=== PATIENT | female | born 1985 | race Caucasian/White ===

== ENCOUNTER → 2021-02-03 | Outpatient (CLI) | payer OTHER | LOC: LAB 12:01 | DX: U07.1 COVID-19 (principal) ==

== ENCOUNTER → 2021-04-19 | Outpatient (CLI) | payer OTHER ==
[~2021-04-19] MED LIST: AMOCLAN 600 MG/75 ML PO; PHENERGAN 25 TA25 MG; PROCHLORPERAZINE5 M1 PO; ROXICODONE 55 MG/TAB PO; SCOPOLAMINE1 EACH TD; ZOFRAN ODT4 MG PO
[2021-04-19 15:46] LABS: HEMATOCRIT 38.3 % (37.0-47.0); HEMOGLOBIN 12.4 g/dL (12.5-16.0); MEAN PLATELET VOLUME 10.6 fl (7.4-10.4); RED BLOOD COUNT 4.15 M/mm3 (4.10-5.30); RED CELL DISTRIBUTION WIDTH 12.2 % (11.5-14.5); WHITE BLOOD COUNT 11.1 K/mm3 (4.8-10.8)
[2021-04-19 15:47] LABS: ALBUMIN 3.5 g/dL (3.5-5.0)
[2021-04-19 15:48] LABS: POTASSIUM 4.3 mmol/L (3.5-5.1)
[2021-04-19 15:49] LABS: CALCIUM 9.4 mg/dL (8.3-10.5)
[2021-04-19 15:50] LABS: TOTAL PROTEIN 7.6 g/dL (6.4-8.3)
[2021-04-19 15:52] LABS: TOTAL BILIRUBIN 0.3 mg/dL (0.2-1.2)
[2021-04-19 15:57] LABS: MAGNESIUM 1.74 mg/dL (1.60-2.60)
== END ==
LOC: LAB 14:51
DX: Z98.890 Other specified postprocedural states (principal)

== ENCOUNTER → 2021-04-22 | Outpatient (CLI) | payer OTHER ==
[2021-04-22 13:11] LABS: HEMATOCRIT 36.8 % (37.0-47.0); HEMOGLOBIN 12.1 g/dL (12.5-16.0); MEAN PLATELET VOLUME 11.3 fl (7.4-10.4); RED BLOOD COUNT 4.06 M/mm3 (4.10-5.30); RED CELL DISTRIBUTION WIDTH 12.4 % (11.5-14.5); WHITE BLOOD COUNT 9.1 K/mm3 (4.8-10.8)
[2021-04-22 13:30] LABS: ALBUMIN 3.4 g/dL (3.5-5.0); POTASSIUM 4.3 mmol/L (3.5-5.1)
[2021-04-22 13:31] LABS: CALCIUM 9.3 mg/dL (8.3-10.5)
[2021-04-22 13:33] LABS: TOTAL PROTEIN 7.6 g/dL (6.4-8.3)
[2021-04-22 13:34] LABS: TOTAL BILIRUBIN 0.4 mg/dL (0.2-1.2)
[2021-04-22 13:39] LABS: MAGNESIUM 1.7 mg/dL (1.60-2.60)
== END ==
LOC: LAB 07:35 → AMSURD 07:35
PROVIDERS: Surgery
DX: E46 Unspecified protein-calorie malnutrition (principal); Z98.890 Other specified postprocedural states

== ENCOUNTER → 2021-04-26 | Outpatient (CLI) | payer OTHER ==
[2021-04-26 11:55] LABS: HEMATOCRIT 38.6 % (37.0-47.0); HEMOGLOBIN 12.7 g/dL (12.5-16.0); MEAN PLATELET VOLUME 10.9 fl (7.4-10.4); RED BLOOD COUNT 4.21 M/mm3 (4.10-5.30); RED CELL DISTRIBUTION WIDTH 12.6 % (11.5-14.5); WHITE BLOOD COUNT 9.9 K/mm3 (4.8-10.8)
[2021-04-26 12:05] LABS: ALBUMIN 3.7 g/dL (3.5-5.0); POTASSIUM 4.7 mmol/L (3.5-5.1)
[2021-04-26 12:07] LABS: CALCIUM 9.4 mg/dL (8.3-10.5)
[2021-04-26 12:10] LABS: TOTAL BILIRUBIN 0.4 mg/dL (0.2-1.2)
[2021-04-26 12:14] LABS: MAGNESIUM 1.88 mg/dL (1.60-2.60)
== END ==
LOC: LAB 11:36
PROVIDERS: Surgery
DX: E44.1 Mild protein-calorie malnutrition (principal); R18.8 Other ascites; Z98.84 Bariatric surgery status

== ENCOUNTER → 2021-04-29 | Outpatient (CLI) | payer OTHER ==
[2021-04-29 12:48] LABS: HEMATOCRIT 37.3 % (37.0-47.0); HEMOGLOBIN 12.2 g/dL (12.5-16.0); MEAN PLATELET VOLUME 11.4 fl (7.4-10.4); RED BLOOD COUNT 4.09 M/mm3 (4.10-5.30); RED CELL DISTRIBUTION WIDTH 12.8 % (11.5-14.5); WHITE BLOOD COUNT 9.9 K/mm3 (4.8-10.8)
[2021-04-29 13:02] LABS: ALBUMIN 3.8 g/dL (3.5-5.0); POTASSIUM 4.6 mmol/L (3.5-5.1)
[2021-04-29 13:03] LABS: CALCIUM 9.9 mg/dL (8.3-10.5)
[2021-04-29 13:05] LABS: TOTAL PROTEIN 7.7 g/dL (6.4-8.3)
[2021-04-29 13:06] LABS: TOTAL BILIRUBIN 0.4 mg/dL (0.2-1.2)
[2021-04-29 13:11] LABS: MAGNESIUM 1.8 mg/dL (1.60-2.60)
== END ==
LOC: LAB 11:37
PROVIDERS: Surgery
DX: E44.1 Mild protein-calorie malnutrition (principal); R18.8 Other ascites; Z98.84 Bariatric surgery status

== ENCOUNTER → 2021-05-03 | Outpatient (CLI) | payer OTHER ==
[2021-05-03 13:10] LABS: HEMOGLOBIN 13.2 g/dL (12.5-16.0); MEAN PLATELET VOLUME 11.3 fl (7.4-10.4); RED BLOOD COUNT 4.4 M/mm3 (4.10-5.30); WHITE BLOOD COUNT 11.3 K/mm3 (4.8-10.8)
[2021-05-03 13:13] LABS: POTASSIUM 4.9 mmol/L (3.5-5.1)
[2021-05-03 13:14] LABS: CALCIUM 9.9 mg/dL (8.3-10.5)
[2021-05-03 13:16] LABS: TOTAL PROTEIN 8.6 g/dL (6.4-8.3)
[2021-05-03 13:17] LABS: TOTAL BILIRUBIN 0.5 mg/dL (0.2-1.2)
[2021-05-03 13:22] LABS: MAGNESIUM 1.67 mg/dL (1.60-2.60)
== END ==
LOC: LAB 12:19
PROVIDERS: Internal Medicine Cardiovascular Disease
DX: E44.1 Mild protein-calorie malnutrition (principal); R18.8 Other ascites; Z98.84 Bariatric surgery status

== ENCOUNTER → 2021-05-06 | Outpatient (CLI) | payer OTHER ==
[2021-05-06 13:22] LABS: ALBUMIN 3.7 g/dL (3.5-5.0); HEMATOCRIT 37.5 % (37.0-47.0); HEMOGLOBIN 12.4 g/dL (12.5-16.0); MEAN PLATELET VOLUME 12.1 fl (7.4-10.4); POTASSIUM 4.3 mmol/L (3.5-5.1); RED BLOOD COUNT 4.11 M/mm3 (4.10-5.30); RED CELL DISTRIBUTION WIDTH 13.4 % (11.5-14.5); WHITE BLOOD COUNT 11.1 K/mm3 (4.8-10.8)
[2021-05-06 13:23] LABS: CALCIUM 9.3 mg/dL (8.3-10.5)
[2021-05-06 13:25] LABS: TOTAL PROTEIN 7.6 g/dL (6.4-8.3)
[2021-05-06 13:26] LABS: TOTAL BILIRUBIN 0.4 mg/dL (0.2-1.2)
[2021-05-06 13:31] LABS: MAGNESIUM 1.67 mg/dL (1.60-2.60)
== END ==
LOC: LAB 11:40
PROVIDERS: Surgery
DX: E44.1 Mild protein-calorie malnutrition (principal); R18.8 Other ascites; Z98.84 Bariatric surgery status

== ENCOUNTER → 2021-07-03 | Outpatient (CLI) | payer OTHER ==
[2021-07-03 14:04] LABS: BASO # 0.05 K/mm3 (0.02-0.10); EOS # 0.11 K/mm3 (0.04-0.40); EOS % 1.6 % (1.0-5.0); HEMATOCRIT 40.4 % (37.0-47.0); HEMOGLOBIN 13.6 g/dL (12.5-16.0); LYMPH# 1.29 K/mm3 (1.50-4.00); MEAN CELL VOLUME 93 fl (78-100); MEAN CORPUSCULAR HEMOGLOBIN 31 pg (27-31); MEAN CORPUSCULAR HGB CONC 34 g/dL (33-37); MEAN PLATELET VOLUME 10.3 fl (7.4-10.4); MONO # 0.63 K/mm3 (0.20-0.80); NEU # 4.78 K/mm3 (1.40-6.50); PLATELET COUNT 272 K/mm3 (130-400); RED BLOOD COUNT 4.34 M/mm3 (4.10-5.30); RED CELL DISTRIBUTION WIDTH 12.3 % (11.5-14.5); WHITE BLOOD COUNT 6.9 K/mm3 (4.8-10.8)
[2021-07-03 14:15] LABS: ALBUMIN 3.8 g/dL (3.5-5.0)
[2021-07-03 14:16] LABS: POTASSIUM 3.7 mmol/L (3.5-5.1)
[2021-07-03 14:17] LABS: CALCIUM 9.4 mg/dL (8.3-10.5)
[2021-07-03 14:20] LABS: TOTAL BILIRUBIN 0.5 mg/dL (0.2-1.2)
[2021-07-04 12:51] LABS: PTH,INTACT 33.8 pg/mL (6.6-88.9)
[2021-07-04 13:06] LABS: FOLATE (FOLIC ACID) 16.5 ng/mL (2.0-20.0)
== END ==
LOC: LAB 13:50
PROVIDERS: Surgery
DX: Z90.3 Acquired absence of stomach [part of] (principal)

== ENCOUNTER 2021-09-23 18:29 | Emergency (ER) | payer OTHER ==
[~2021-09-23] VITALS: Ht 172.7 cm; Wt 109.1 kg
[2021-09-23] MEDS ORDERED: PROPRANOLOL HCL20 M2 PO (19:43)
[2021-09-23] MEDS ORDERED: CITALOPRAM40 MG PO (19:43)
[2021-09-23] MEDS ORDERED: ZYRTEC ALLERGY10 MG PO (19:44)
[2021-09-23] MEDS ORDERED: ATIVAN1 M1 PO (19:44)
[2021-09-23] MEDS ORDERED: BUSPIRONE HYDRO10 MG PO (19:44)
[2021-09-23] MEDS ORDERED: OMEPRAZOLE40 MG PO (19:44)
[2021-09-23] MEDS ORDERED: DESYREL50 MG PO (19:45)
[2021-09-23] MEDS ORDERED: ALDACTONE 25MG25 MG PO (19:45)
[2021-09-23] MEDS ORDERED: CARAFATE 1GM1 G PO (19:46)
[2021-09-23] MEDS ORDERED: TRAMADOL 50 MG TAB PO (19:46)
[2021-09-23] MEDS ORDERED: NORCO 325 MG-51 TA1 PO (21:10)
[2021-09-23] MEDS ORDERED: CYCLOBENZAPRINE10 M1 PO (21:10)
[2021-09-23 22:14] VITALS: BP 126/73
== END 2021-09-23 21:30 | disposition home or self-care (01) ==
LOC: ED 18:29
DX: S40.212A Abrasion of left shoulder, initial encounter (principal); M54.2 Cervicalgia; R07.89 Other chest pain; R42 Dizziness and giddiness; Z88.1 Allergy status to other antibiotic agents; Z28.310 Unvaccinated for COVID-19; V49.40XA Driver injured in collision with unspecified motor vehicles in traffic accident, initial encounter; Y92.410 Unspecified street and highway as the place of occurrence of the external cause